=== PATIENT | female | born 1995 | race Caucasian/White ===

== ENCOUNTER 2021-08-22 20:44 | Emergency (ER) | payer SELFPAY ==
[2021-08-22 20:52] VITALS: BP 121/78; PULSE 98; RESP 18; TEMP 35.9; O2SAT 99
--- NOTE | 2021-08-22 21:14 | ED.PSYCH ---
HPI - Psych General Chief Complaint: Psychiatric Symptoms Stated Complaint: SI Time Seen by Provider: 08/22/21 21:07 Source: patient Mode of arrival: ambulatory Limitations: no limitations History of Present Illness HPI Narrative: Patient brought in by EMS after patient made a comment about self-harm. Patient states that she had a fight with her boyfriend and she decided because she was mad at that time heat of the moment , denies any intention of actually harming herself. Patient denies any suicidal homicidal ideations. Patient denies any auditory or visual hallucinations. Patient states that she is feeling better emotionally and has no complaints at this time. Related Data Allergies Allergy/AdvReac Type Severity Reaction Status Date / Time No Known Allergies Allergy Unverified 11/27/15 18:44 Review of Systems Review of Systems: All systems reviewed & are unremarkable except as noted in HPI and below Constitutional: Constitutional: Denies body ache(s), Denies chills, Denies excessive sweating, Denies fatigue, Denies fever(s), Denies headache(s), Denies lethargy, Denies malaise, Denies weakness and Denies weight loss Eyes: Eyes: Denies blurry vision, Denies change in vision and Denies loss of vision ENT: Denies dizziness, Denies ear discharge, Denies headache(s), Denies lip swelling, Denies epistaxis, Denies nasal congestion, Denies neck pain, Denies throat swelling and Denies tongue swelling Cardiovascular: Cardiovascular: Denies chest pain, Denies chest pain at rest, Denies chest pain with activity, Denies diaphoresis, Denies rapid heart rate, Denies edema, Denies irregular heart rhythm, Denies lightheadedness, Denies palpitations, Denies dyspnea and Denies dyspnea on exertion Respiratory: Respiratory: Denies chest congestion, Denies cough, Denies hemoptysis, Denies dyspnea and Denies dyspnea on exertion Gastrointestinal: Gastrointestinal: Denies abdominal pain, Denies melena, Denies hematochezia, Denies diarrhea, Denies nausea, Denies vomiting and Denies hematemesis Musculoskeletal: Musculoskeletal: Denies abnormal gait, Denies deformity, Denies joint swelling, Denies limited range of motion, Denies neck pain and Denies numbness Neurologic: Denies Abnormal speech present, Denies abnormal gait, Denies confusion, Denies dizziness, Denies headache(s), Denies focal weakness, Denies loss of vision, Denies numbness, Denies Other visual disturbances, Denies Sensory deficit (Neuro) and Denies weakness Psychiatric: Psychiatric: Denies confusion, Denies depression, Denies auditory hallucinations, Denies homicidal ideation and Denies suicidal ideation Endocrine: Endocrine: Denies cold intolerance, Denies excessive sweating, Denies fatigue, Denies heat intolerance and Denies palpitations Hematologic/Lymphatic: Hematologic/Lymphatic: Denies easy bleeding and Denies easy bruising Allergic/Immunologic: Allergic/Immunologic: Denies lip swelling, Denies throat swelling and Denies tongue swelling [facility] Social History Social History Substance use type: does not use Comments Past medical history: None Family history: Noncontributory Social history: Non-smoker no EtOH or drug use Exam Const: General: cooperative, healthy appearing, comfortable, no acute distress, well developed, alert and awake; No confusion Orientation/consciousness: oriented to person, oriented to place, oriented to time, patient oriented x3 and No confusion Limitations: no limitations HENMT: Head: normal to inspection, normocephalic and atraumatic Ears: hearing grossly normal bilaterally, TM normal on the right and TM normal on the left General nose exam: Normal external nose present, Normal nares present and No nasal discharge present Face and sinus: normal facial exam Mouth: Yes Normal oral and palatal mucosa present, Yes lip normal, Yes tongue normal and Yes oropharynx normal Throat: posterior oropharynx normal, tonsils normal and uvula midline Eyes: General:
[2021-08-22 21:38] LABS: Basophils Absolute Auto 0.1 K/mm3 (0.0-0.1); Basophils Percent Auto 1.1 % (0.2-1.2); Eosinophils Absolute Auto 0.2 K/mm3 (0-0.3); Eosinophils Percent Auto 2.6 % (0-4.4); Hematocrit 44.1 % (37.0-47.0); Hemoglobin 15.3 g/dL (12.0-15.0); Immature Granulocyte Absolute 0.02 K/mm3 (0.00-0.031); Immature Granulocyte Percent A 0.2 % (0-0.5); Lymphocytes Absolute Auto 2.37 K/mm3 (0.9-3.2); Lymphocytes Percent Auto 25.8 % (18.3-44.2); Mean Corpuscular HGB Conc 34.7 g/dl (32-36); Mean Corpuscular Hemoglobin 31.6 pg (26-34); Mean Corpuscular Volume 91.1 fl (80-100); Monocytes Absolute Auto 0.8 K/mm3 (0.1-0.6); Monocytes Percent Auto 8.5 % (2.6-8.5); Neutrophils Absolute Auto 5.7 K/mm3 (1.3-6.7); Neutrophils Percent Auto 61.8 % (45.5-73.1); Platelet Count Result 247 k/mm3 (150-375); Red Blood Count 4.84 M/mm3 (4.2-5.4); Red Cell Distribution Width 12.4 % (11.5-14.5); White Blood Count 9.2 K/mm3 (4.5-10.0)
[2021-08-22 21:48] LABS: Ethanol < 10 mg/dL (<10)
[2021-08-22 21:49] LABS: Alanine Aminotransferase 15 U/L (4-35); Albumin Level 4.7 g/dL (3.5-5.1); Alkaline Phosphatase 47 U/L (38-126); Anion Gap 9 mmol/L (8-16); Aspartate Amino Transferase 25 U/L (14-36); Bilirubin,Total 0.6 mg/dL (0.2-1.3); Blood Urea Nitrogen 10 mg/dL (7-17); Calcium 9.5 mg/dL (8.4-10.2); Carbon Dioxide 23 mmol/L (22-30); Chloride 110 mmol/L (98-107); Estimated CRCL calculation 74 ml/min; Estimated Glomerular Filt Rate > 60; Glucose 100 mg/dL (65-110); Potassium 3.6 mmol/L (3.4-5.0); Sodium 142 mmol/L (137-145)
[2021-08-22 21:52] LABS: Add Urine Microscopic? YES; Appearance Urine Cloudy (Clear); Bilirubin Urine Negative (Negative); Blood Urine 1+ (Negative); Color Urine Amber (Yellow); Glucose Urine UA Negative (Negative); Granular Casts Urine 20-29 /lpf; Ketones Urine Negative (Negative); Leukocyte Esterase Ur Negative LEU/UL (Negative); Mucus Urine Moderate /lpf; Nitrate Urine Negative (Negative); Protein Urine 1+ mg/dL (Negative); Specific Grav Ur 1.027 (1.001-1.035); Squamous Epithelial Cell Urine Many /hpf (Few); WBC Urine 0-3 /hpf
[2021-08-22] MEDS: PROMETHAZINE HCL 25 MG/ML AMPUL IM (21:59)
[2021-08-22 22:14] LABS: Barbiturate Screen Urine Negative (Negative); Benzodiazepines Screen Urine Negative (Negative)
--- NOTE | 2021-08-22 22:18 | ECG_ITS ---
Measurements Intervals [place] Rate: 64 P: 68 AK: 167 QRS: 50 QRSD: 75 T: 27 QT: 398 QTc: 412 Interpretive Statements SINUS RHYTHM WITH SINUS ARRHYTHMIA NORMAL ECG Electronically Signed On 08-23-2021 6:36:54 CDT by Bandar Biswas D.O.
[2021-08-22 22:27] LABS: Acetaminophen < 10 ug/mL (10-30); Salicylate < 1.0 mg/dL (2-20)
[2021-08-22 22:48] LABS: Amphetamine Screen Urine Negative (Negative); Cannabinoid Screen Urine Positive (Negative); Methadone Screen Urine Negative (Negative); Opiate Screen Urine Negative (Negative); Phencyclidine Screen Urine Negative (Negative)
--- NOTE | 2021-08-22 23:06 | PC.NURSE ---
RADIOLOG[facility] AT [facility] CALLED.
[2021-08-23 01:23] VITALS: BP 137/84; PULSE 78; RESP 18; O2SAT 97
[2021-08-23 13:01] LABS: Cocaine Screen Urine Negative (Negative)
== END 2021-08-23 01:25 | disposition home or self-care (01) ==
PROVIDERS: Emergency Medicine; Emergency Provider Emergency Medicine
DX: R45.4 Irritability and anger (principal)
CPT/HCPCS: 36415; 80053; 80307; 81001; 84443; 85025; 93005; 96372; 99283; J2550

== ENCOUNTER 2023-07-30 09:07 | Emergency (ER) | payer OTHER, SELFPAY ==
[2023-07-30] VITALS (8 sets, daily range): BP systolic 104–141; BP diastolic 61–83; PULSE 62–83; RESP 11–19; TEMP 36.8; O2SAT 98–100
--- NOTE | ~2023-07-30 | XR_ITS ---
EXAMINATION: XR chest 2V DATE: 07/30/2023 09:52 INDICATION: Chest pain. TECHNIQUE: Frontal and lateral views of the chest were obtained. COMPARISON: None. FINDINGS: There is no pneumonia, pleural effusion, or pneumothorax. The heart size is normal. IMPRESSION: 1. No acute cardiopulmonary disease. Reviewed, dictated and finalized at location A.
--- NOTE | 2023-07-30 09:12 | ECG_ITS ---
Measurements Intervals [place] Rate: 65 P: 56 DE: 148 QRS: 16 QRSD: 74 T: 6 QT: 377 QTc: 392 Interpretive Statements SINUS RHYTHM MINIMAL Q WAVES- INFERIOR LEADS BORDERLINE T WAVE ABNORMALITY- INFERIOR LEADS BASELINE WANDER- V3-V6 BORDERLINE ECG COMPARED TO ECG 08/22/2021 23:25:00 NO SIGNIFICANT CHANGES Electronically Signed On 07-30-2023 9:38:44 CDT by Bandar Biswas D.O.
[2023-07-30] MEDS: ASPIRIN 81 MG CHEWABLE TABLET 324 MG PO (09:29)
[2023-07-30 09:39] LABS: Basophils Absolute Auto 0.1 K/mm3 (0.0-0.1); Basophils Percent Auto 1.2 % (0.2-1.2); Eosinophils Absolute Auto 0.1 K/mm3 (0-0.3); Eosinophils Percent Auto 1.2 % (0-4.4); Hematocrit 41.7 % (37.0-47.0); Hemoglobin 13.9 g/dL (12.0-15.0); Immature Granulocyte Absolute 0.01 K/mm3 (0.00-0.031); Immature Granulocyte Percent A 0.2 % (0-0.5); Lymphocytes Absolute Auto 1.64 K/mm3 (0.9-3.2); Lymphocytes Percent Auto 32.9 % (18.3-44.2); Mean Corpuscular HGB Conc 33.3 g/dl (32-36); Mean Corpuscular Hemoglobin 30.3 pg (26-34); Mean Corpuscular Volume 90.8 fl (80-100); Mean Platelet Volume 9.8 fl (7.4-10.4); Monocytes Absolute Auto 0.5 K/mm3 (0.1-0.6); Monocytes Percent Auto 9.4 % (2.6-8.5); Neutrophils Absolute Auto 2.8 K/mm3 (1.3-6.7); Neutrophils Percent Auto 55.1 % (45.5-73.1); Platelet Count Result 222 k/mm3 (150-375); Red Blood Count 4.59 M/mm3 (4.2-5.4); Red Cell Distribution Width 12.3 % (11.5-14.5)
[2023-07-30 09:43] LABS: Appearance Urine Clear (Clear); Bilirubin Urine Negative (Negative); Blood Urine Negative (Negative); Color Urine Yellow (Yellow); Glucose Urine UA Negative (Negative); Ketones Urine Negative (Negative); Leukocyte Esterase Ur Negative LEU/UL (Negative); Nitrate Urine Negative (Negative); Protein Urine Negative (Negative); Specific Grav Ur 1.007 (1.001-1.035); Urobilinogen Urine 0.2 mg/dL (<2.0); pH Urine 6.5 (5.0-9.0)
[2023-07-30 09:49] LABS: Alanine Aminotransferase 18 U/L (6-35); Albumin Level 4.6 g/dL (3.5-5.1); Alkaline Phosphatase 47 U/L (38-126); Anion Gap 11 mmol/L (8-16); Aspartate Amino Transferase 23 U/L (14-36); Bilirubin,Total 0.5 mg/dL (0.2-1.3); Blood Urea Nitrogen 12 mg/dL (7-17); Calcium 9.4 mg/dL (8.4-10.2); Carbon Dioxide 22 mmol/L (22-30); Chloride 106 mmol/L (98-107); Estimated CRCL calculation 110 ml/min; Estimated Glomerular Filt Rate > 60; Glucose 99 mg/dL (65-110); Lipase 51 U/L (23-300); Potassium 4.1 mmol/L (3.4-5.0); Sodium 139 mmol/L (137-145)
[2023-07-30 09:50] LABS: INR 0.9; Partial Thromboplastin Time 28.5 SECONDS (22.3-36.8); Prothrombin Time 12.1 Seconds (11.1-14.7)
--- NOTE | 2023-07-30 09:55 | ED.GENADULT ---
HPI - General Adult General Chief complaint: Chest Pain Stated complaint: chest pain Time Seen by Provider: 07/30/23 09:11 History of Present Illness HPI narrative: Janki Castro is a 27 y/o female who presents with reports of intermittent chest pain for 3 days. She states that the pain does not last long, it comes to different areas to her chest and its sharp. She had a few more episodes of sharp chest pain to her chest today so she came in. She denies shortness of breath/ cough/ recent fever/chills. She also reports of this dull ache to the back of her left arm that is off and on the past few days. Currently denies any chest pain / left arm pain/ numbness/ tingling. Denies abdominal pain/ nausea/vomiting/ no hx of DVT/ No recent fall /trauma/ headache /vision changes. Related Data Allergies Allergy/AdvReac Type Severity Reaction Status Date / Time No Known Allergies Allergy Verified 07/30/23 09:28 Review of Systems Review of Systems: CONSTITUTIONAL: Denies fever, chills, or sweats. EYES: Denies visual changes, redness, or discharge. ENT: Denies rhinorrhea, congestion, sore throat, or otalgia. CARDIOVASCULAR: Denies chest pain, palpitations, or edema. RESPIRATORY: Denies cough or dyspnea. GASTROINTESTINAL: Denies abdominal pain, nausea, vomiting, or diarrhea. GENITOURINARY: Denies dysuria or hematuria. SKIN: Denies rash or itching. MUSCULOSKELETAL: Denies back pain, joint pain, or myalgia. NEUROLOGIC: Denies headache, numbness, dizziness, or weakness. PSYCHIATRIC: Denies anxiety or depression. [facility] Social History Social History Substance use type: does not use Exam Narrative: GENERAL: Well-appearing, well-nourished, and in no acute distress. HEAD: Normocephalic, atraumatic. EYES: PERRLA and EOMI. ENT: Nares clear, no rhinorrhea or epistaxis. Mucous membranes moist. Oropharynx without tonsillar hypertrophy exudate or other lesions. NECK: Supple. No adenopathy or masses. No carotid bruits or JVD CHEST: Clear to auscultation. No respiratory distress. No wheezes rales or rhonchi HEART: Regular rate and rhythm. No murmur heard. Normal peripheral pulses. ABDOMEN: Soft, nontender, nondistended, normal active bowel sounds. EXTREMITIES: Normal range of motion. No edema. SKIN: Warm, dry, no rash. NEURO: No focal deficits. Alert and oriented x3. PSYCH: Normal mood and affect. Course Vital Signs Vital signs: Vital Signs Temperature 36.8 C 07/30/23 09:13 Pulse Rate 83 07/30/23 09:13 Respiratory Rate 16 07/30/23 09:13 Blood Pressure 141/68 H 07/30/23 09:13 Pulse Oximetry 100 07/30/23 09:13 Oxygen Delivery Room Air 07/30/23 09:13 Temperature 36.8 C 07/30/23 09:13 Pulse Rate 62 07/30/23 12:40 Respiratory Rate 14 07/30/23 12:40 Blood Pressure 104/78 07/30/23 12:40 Pulse Oximetry 99 07/30/23 12:40 Oxygen Delivery Room Air 07/30/23 09:13 Medical Decision Making MDM Narrative Medical decision making narrative: [place] is calm / in no acute distress/ comes in with concern for this sporadic intermittent chest pain associated with some left arm dullness pain that is intermittent No previous cardiac hx/ no SOB/ Neuro assessment intact Concern for : Cardiac ischemia/ pulmonary embolism / URI/ costochondritis/ Labs are stable CBC - negative Trop - negative Ddimer-negative UA- negative CMP-negative Plant to check a 3 hour trop and as long as stable will d/c home. Repeat Trop here is negative heart score is 0 patient updated on results and plan for d/c home with close follow up with her PCP next month Patient encouraged to return to the ED for any worsening symptoms or concerns. Medical Records Medical records reviewed: Yes I reviewed the external patient's medical records. Vital Signs Vital Signs: Vital Signs Temperature 36.8 C 07/30/23 09:13 Pulse Rate 83 07/30/23 09:13 Res
[2023-07-30 10:01] LABS: Troponin I < 0.012 ng/mL (0.000-0.034)
[2023-07-30 10:03] LABS: D Dimer < 0.27 ug/mL (<0.48)
[2023-07-30 10:04] LABS: Add Urine Microscopic? NO
[2023-07-30 12:22] LABS: Troponin I < 0.012 ng/mL (0.000-0.034)
== END 2023-07-30 13:20 | disposition home or self-care (01) ==
PROVIDERS: Emergency Medicine; Emergency Provider Nurse Practitioner Family
DX: R07.9 Chest pain, unspecified (principal)
CPT/HCPCS: 36415; 71046; 80053; 81003; 83690; 84484; 85025; 85380; 85610; 85730; 93005; 99284; A9270

== ENCOUNTER 2023-11-10 16:24 | Emergency (ER) | payer OTHER, SELFPAY ==
--- NOTE | ~2023-11-10 | CT_ITS ---
EXAMINATION: CT abdomen pelvis w con INDICATION: Abdominal pain TECHNIQUE: Computed tomographic images of the abdomen and pelvis were obtained after the administrati on of 100 cc of Omnipaque 350 intravenous contrast. The dose-length product (DLP) was 742.83 mGy-cm. Automated exposure control and iterative reconstruction technique were employed. COMPARISON: None available FINDINGS: There are airspace opacities of the visualized lung bases. The heart size is normal. The li sho, spleen, pancreas, gallbladder, and adrenal glands are normal. The kidneys are unremarkable. No p athologically enlarged abdominal or pelvic lymph nodes are identified. There is no free intraperitone al gas or evidence of bowel obstruction. An IUD is present in expected position. The appendix is norm al. IMPRESSION: 1. No CT correlate for the patient's symptoms. Reviewed, dictated and finalized at location F. LEGAL SECRETARY
[2023-11-10 16:26] VITALS: BP 131/72; PULSE 74; RESP 18; TEMP 36.8; O2SAT 100
--- NOTE | 2023-11-10 17:00 | ED.ABDPAIN ---
HPI - Abdominal Pain General Chief Complaint: Abdominal Pain Stated Complaint: abd pain Time Seen by Provider: 11/10/23 17:00 Source: patient Mode of arrival: ambulatory Limitations: no limitations History of Present Illness HPI narrative: PATIENT IS 27 YEARS OLD WHITE FEMALE DROVE HERSELF TO THE EMERGENCY ROOM COMPLAINING OF GENERALIZED ABDOMINAL PAIN, CRAMPS, COMES IN WAVES ASSOCIATED WITH NAUSEA, BEEN USING [id number] LAXATIVE AND IBUPROFEN WITHOUT IMPROVEMENT. HISTORY OF SECTION TWICE, Related Data Allergies Allergy/AdvReac Type Severity Reaction Status Date / Time No Known Allergies Allergy Verified 07/30/23 09:28 Review of Systems Review of Systems: All systems reviewed & are unremarkable except as noted in HPI and below PMFSH Social History Social History Substance use type: does not use Exam Narrative: GENERAL APPEARANCE: WELL-DEVELOPED, WELL-NOURISHED SKIN: NORMAL COLOR HEAD: NORMOCEPHALIC, NONTRAUMATIC EYES: CLEAR CONJUNCTIVA ENT: OROPHARYNX NORMAL, EARS NORMAL, NOSE NORMAL NECK: SUPPLE, NONTENDER CHEST AND RESPIRATORY: AIRWAY PATENT, NO RESPIRATORY DISTRESS, NO ACCESSORY MUSCLE USE HEART: REGULAR RATE/RHYTHM ABDOMEN: SOFT, SLIGHT DIFFUSE TENDERNESS, NO ORGANOMEGALY, QUIET BOWEL SOUNDS, NO GUARDING OR REBOUND VASCULAR: NORMAL PERIPHERAL PULSES, NORMAL CAPILLARY REFILL. MUSCULOSKELETAL: NORMAL RANGE OF MOTION, NONTENDER BACK NEUROLOGIC: ALERT AND ORIENTED ?3, CASKET INSPECTOR IS NORMAL TESTED, NO GROSS MOTOR DEFICIT Course Reevaluation(s) Reevaluation #1: NO NEW CHANGES COMPARED TO ON ARRIVAL TO THE ED. PATIENT DECLINED PAIN MEDICATION BECAUSE SHE HAVE TO DRIVE BACK HOME. Date: 11/10/23 Time: 18:53 Vital Signs Vital signs: Vital Signs Temperature 36.8 C 11/10/23 16:26 Pulse Rate 74 11/10/23 16:26 Respiratory Rate 18 11/10/23 16:26 Blood Pressure 131/72 11/10/23 16:26 Pulse Oximetry 100 11/10/23 16:26 Oxygen Delivery Room Air 11/10/23 16:26 Temperature 36.8 C 11/10/23 16:26 Pulse Rate 74 11/10/23 16:26 Respiratory Rate 18 11/10/23 16:26 Blood Pressure 131/72 11/10/23 16:26 Pulse Oximetry 100 11/10/23 16:26 Oxygen Delivery Room Air 11/10/23 16:26 MDM - Abdominal Pain MDM Narrative Medical decision making narrative: PATIENT PRESENTS WITH DIFFUSE ABDOMINAL PAIN, VITAL SIGNS ON ARRIVAL ARE STABLE PHYSICAL EXAMINATION SHOWED SLIGHT LOWER ABDOMINAL TENDERNESS, NO GUARDING OR REBOUND DIFFERENTIAL DIAGNOSIS INCLUDE CONSTIPATION, COLITIS, DIVERTICULITIS, URINARY TRACT INFECTION, STRESS RELATED, LAXATIVE RELATED. BLOOD WORKUP SHOWED NO ACUTE ABNORMALITY URINE ANALYSIS POSITIVE FOR URINARY TRACT INFECTION, 1 G ROCEPHIN IV GIVEN. CT ABDOMEN WITH IV CONTRAST SHOWED NO ACUTE ABNORMALITY TO EXPLAIN PATIENT'S CONDITION. URINARY TRACT INFECTION IS MY CONCERN. DISCHARGED ON MACROBID. Differential Diagnosis Differential diagnosis: Likely other ( ABOVE) Lab Data 11/10/23 17:16 11/10/23 17:16 Labs: Lab Results 11/10/23 11/10/23 Range/Units 17:16 17:22 WBC 7.8 (4.5-10.0) K/mm3 RBC 4.97 (4.2-5.4) M/mm3 Hgb 14.7 (12.0-15.0) g/dL Hct 44.7 (37.0-47.0) % MCV 89.9 (80-100) fl MCH 29.6 (26-34) pg MCHC 32.9 (32-36) g/dl RDW 11.9 (11.5-14.5) % Plt Count 310 (150-375) k/mm3 MPV 9.9 (7.4-10.4) fl Immature Gran % (Auto) 0.1 (0-0.5) % Neut % (Auto) 54.6 (45.5-73.1) % Lymph % (Auto) 35.3 (18.3-44.2) % [place] % (Auto) 7.1 (2.6-8.5) % Eos % (Auto) 1.9 (0-4.4) % Baso % (Auto) 1.0 (0.2-1.2) % Lymph # (Auto) 2.77 (0.9-3.2) K/m
[2023-11-10 17:27] LABS: Basophils Absolute Auto 0.1 K/mm3 (0.0-0.1); Eosinophils Absolute Auto 0.2 K/mm3 (0-0.3); Eosinophils Percent Auto 1.9 % (0-4.4); Hematocrit 44.7 % (37.0-47.0); Hemoglobin 14.7 g/dL (12.0-15.0); Immature Granulocyte Absolute 0.01 K/mm3 (0.00-0.031); Immature Granulocyte Percent A 0.1 % (0-0.5); Lymphocytes Absolute Auto 2.77 K/mm3 (0.9-3.2); Lymphocytes Percent Auto 35.3 % (18.3-44.2); Mean Corpuscular HGB Conc 32.9 g/dl (32-36); Mean Corpuscular Hemoglobin 29.6 pg (26-34); Mean Corpuscular Volume 89.9 fl (80-100); Mean Platelet Volume 9.9 fl (7.4-10.4); Monocytes Absolute Auto 0.6 K/mm3 (0.1-0.6); Monocytes Percent Auto 7.1 % (2.6-8.5); Neutrophils Absolute Auto 4.3 K/mm3 (1.3-6.7); Neutrophils Percent Auto 54.6 % (45.5-73.1); Platelet Count Result 310 k/mm3 (150-375); Red Blood Count 4.97 M/mm3 (4.2-5.4); Red Cell Distribution Width 11.9 % (11.5-14.5); White Blood Count 7.8 K/mm3 (4.5-10.0)
[2023-11-10] MEDS: SODIUM CHLORIDE 0.9% IV 1,000 ML 999 ML IV CONT (17:29)
[2023-11-10] MEDS: ONDANSETRON INJ 4 MG/2 ML VIAL IV PUSH (17:30)
[2023-11-10 17:33] LABS: Appearance Urine Cloudy (Clear); Bacteria Urine 1+ /hpf; Bilirubin Urine Negative (Negative); Blood Urine Negative (Negative); Color Urine Yellow (Yellow); Glucose Urine UA Negative (Negative); Ketones Urine Negative (Negative); Leukocyte Esterase Ur 2+ LEU/UL (Negative); Nitrate Urine Negative (Negative); Non Pathogenic Casts 0-2; Protein Urine Negative (Negative); RBC Urine 0-2 /hpf (0-2); Specific Grav Ur 1.012 (1.001-1.035); Squamous Epithelial Cell Urine Few /hpf (Few); Urobilinogen Urine 0.2 mg/dL (<2.0); WBC Urine 21-50 /hpf; pH Urine 6.5 (5.0-9.0)
[2023-11-10 17:37] LABS: Alanine Aminotransferase 18 U/L (6-35); Albumin Level 4.8 g/dL (3.5-5.1); Alkaline Phosphatase 58 U/L (38-126); Anion Gap 8 mmol/L (8-16); Aspartate Amino Transferase 29 U/L (14-36); Bilirubin,Total 0.5 mg/dL (0.2-1.3); Blood Urea Nitrogen 10 mg/dL (7-17); Calcium 9.5 mg/dL (8.4-10.2); Carbon Dioxide 29 mmol/L (22-30); Chloride 101 mmol/L (98-107); Estimated CRCL calculation 121 ml/min; Estimated Glomerular Filt Rate > 60; Glucose 87 mg/dL (65-110); Lipase 85 U/L (23-300); Potassium 3.9 mmol/L (3.4-5.0); Sodium 138 mmol/L (137-145)
[2023-11-10 17:48] LABS: Add Urine Microscopic? YES
[2023-11-10 19:54] VITALS: BP 123/74; PULSE 62; RESP 14; TEMP 36.6; O2SAT 99
== END 2023-11-10 19:55 | disposition home or self-care (01) ==
PROVIDERS: Emergency Provider Emergency Medicine
DX: N39.0 Urinary tract infection, site not specified (principal); R10.9 Unspecified abdominal pain
CPT/HCPCS: 36415; 74177; 80053; 81001; 81025; 83690; 85025; 87086; 87088; 96361; 96365; 96375; 99284; J0696; J2405; J7030; Q9967